=== PATIENT | female | born 1955 | race Caucasian/White ===

== ENCOUNTER → 2016-06-19 | Outpatient (CLI) | payer OTHER ==
[~2016-06-19] MED LIST: IOHEXOL 300 MG/ML 75 ML VIAL IV ONE
--- NOTE | 2016-06-19 14:32 | RAD ---
CT of the chest with contrast, 06/19/2016: History: Dyspnea, weight loss Multidetector CT imaging was performed following an IV bolus injection of iodinated contrast material. There is calcific plaquing of the thoracic aorta and its branches without evidence of aneurysm. No mediastinal or hilar adenopathy is seen. There is no evidence of pleural fluid. There are several mild linear parenchymal opacities in both lungs compatible with scarring and/or atelectasis. No pulmonary mass or dense consolidation is seen. The gallbladder is surgically absent. There is a 3.2 cm cyst present anteriorly in the liver. Two other smaller subcentimeter low-density hepatic lesions are also probably cysts, although they are too small to definitively characterize. There also appears to be a tiny left renal cyst. IMPRESSION: 1. Mild linear scarring and/or atelectasis in both lungs. 2. Aortic atherosclerosis. 3. Hepatic and left renal cysts. PQRS Compliance Statement: One or more of the following individualized dose reduction techniques were utilized for this examination: 1. Automated exposure control 2. Adjustment of the mA and/or kV according to patient size 3. Use of iterative reconstruction technique
== END | disposition home or self-care (01) ==
LOC: CT 09:46
PROVIDERS: ATTEND Family Medicine
DX: R06.00 Dyspnea, unspecified (principal); R63.4 Abnormal weight loss; J98.4 Other disorders of lung; J98.11 Atelectasis; I70.0 Atherosclerosis of aorta; N28.1 Cyst of kidney, acquired
CPT/HCPCS: 71260; Q9967

== ENCOUNTER → 2016-06-29 | Outpatient (CLI) | payer OTHER ==
--- NOTE | 2016-06-29 12:13 | RAD ---
EXAM: Dual modality PET/CT. HISTORY: Pulmonary nodule. TECHNIQUE: PET images of the entire body were obtained approximately 60 minutes following the intravenous administration of 16.6 mCi F-18 fluorodeoxyglucose (FDG). CT images of the body were obtained for attenuation correction purposes. The blood glucose level prior to tracer administration was 109 mg/dL. One or more of the following individualized dose reduction techniques were utilized for this examination: 1. Automated exposure control. 2. Adjustment of the mA and/or kV according to patient size. 3. Use of iterative reconstruction technique. Chest CT dated 06/19/2016 COMPARISON: Chest CT dated 06/19/2016. FINDINGS: There is increased radiotracer activity involving the right intercostal musculature, likely physiologic. There is also physiologic activity involving the vocal cords. There is suspected degenerative tracer activity involving the right sternoclavicular joint. There is expected tracer activity involving the bowel and renal collecting system. The CT portion of the exam demonstrates suspected scarring within the anterior right upper and middle lobes and lingula and bilateral infrahilar regions. No abnormal tracer activity is seen associated with these regions. The heart is normal in size. There is coronary artery atherosclerosis. The brain is unremarkable. There is calcified plaque within the carotid bifurcations. There are several hypodense lesions within the liver, the largest of which measures 3.0 cm and is likely a cyst. The smaller lesions are too small to characterize. The gallbladder is surgically absent. The pancreas, spleen, adrenal glands and right kidney are unremarkable. There is a tiny left renal cortical cyst. There is distal colonic diverticulosis. There is aortic and aortic branch vessel atherosclerosis. The uterus and adnexal regions are unremarkable. There is no suspicious osseous lesion. There are degenerative changes predominantly at the lumbosacral junction. IMPRESSION: 1. No abnormal radiotracer activity suggest malignancy. 2. Multiple areas of suspected pleural parenchymal scarring within both lungs, also characterized on the recent chest CT dated 06/19/2016. 3. 3.0 cm hepatic cyst. There are smaller hypodense lesions within the liver which are too small to characterize. In the absence of known malignancy, these are also likely cysts.
== END | disposition home or self-care (01) ==
LOC: PETSC 08:53
PROVIDERS: ATTEND Family Medicine
DX: R91.1 Solitary pulmonary nodule (principal); K76.89 Other specified diseases of liver
CPT/HCPCS: 78816; A9552

== ENCOUNTER 2018-04-14 14:56 | Inpatient (IN) | payer OTHER ==
[~2018-04-14] VITALS: Ht 154.9 cm; Wt 45.4 kg
[2018-04-14] MEDS ORDERED: ASPI-424 PO (18:46)
[2018-04-14] MEDS ORDERED: PANT20TA2 PO (18:46)
[2018-04-14] MEDS ORDERED: METH-37 PO (18:46)
[2018-04-14] MEDS ORDERED: ALPR2TAB5 PO (18:46)
[2018-04-14] MEDS ORDERED: ACYC5CRE3 TP (18:46)
[2018-04-14] MEDS ORDERED: NAPR-514 PO (18:46)
[2018-04-14] MEDS ORDERED: QUET200T4 PO (18:46)
[2018-04-14] MEDS ORDERED: LISI1TAB5 PO (18:46)
[2018-04-14 19:00] VITALS: BP 138/60
[2018-04-14] MEDS ORDERED: MORPHINE SULFATE 2 MG/ML VIAL. IV PRN (20:00)
[2018-04-14] MEDS ORDERED: HYDROcodone/APAP 5/325MG 1 TAB TABLET PO PRN (20:00)
[2018-04-14] MEDS ORDERED: traMADol 50 MG TABLET PO PRN (20:30)
[2018-04-14] MEDS ORDERED: ACETAMINOPHEN 325 MG TABLET. PO PRN (20:30)
[2018-04-14] MEDS: IV RINGERS,LACTATED 1000ML 1,000 ML IV SCH (20:30)
[2018-04-14] MEDS ORDERED: ACYCLOVIR TP PRN (20:45)
[2018-04-14] MEDS ORDERED: NAPROXEN 500 MG TABLET PO PRN (20:45)
[2018-04-14] MEDS ORDERED: ALPRAZolam 1 MG TABLET PO PRN (20:45)
[2018-04-14] MEDS ORDERED: HYDROCORTISONE TP PRN (20:45)
[2018-04-14] MEDS ORDERED: METHOCARBAMOL 500 MG TABLET PO PRN (20:45)
--- NOTE | 2018-04-14 20:49 | NUR ---
1800 patient placed in room 404 with no c/o pain at that time. Patient was instructed in use of call light and doctor was called for orders. Preston yin ordered. Dr Bauer to put in admission orders, but did give me changed to make on her home medications.
[2018-04-14] MEDS ORDERED: ZOLPIDEM 5 MG TABLET. PO PRN (21:30)
[2018-04-14] MEDS ORDERED: BISACODYL 10 MG SUPP.RECT. PR PRN (21:30)
[2018-04-14] MEDS ORDERED: ONDANSETRON PF 4 MG/2 ML VIAL. IV PRN (21:30)
[2018-04-14] MEDS ORDERED: MAGNESIUM HYDROXIDE 2,400 MG/30 ML ORAL.SUSP. PO PRN (21:30)
[2018-04-14] MEDS ORDERED: HEPARIN for SUB-Q USE 5,000 UNIT/ML VIAL. SQ ONE (21:30)
[2018-04-14 21:31] LABS: BILIRUBIN,URINE NEGATIVE (NEG); CLARITY,URINE CLEAR; COLOR,URINE YELLOW; NITRITE,URINE POSITIVE (NEG); PROTEIN,URINE NEGATIVE (NEG-TRACE)
[2018-04-14 21:43] LABS: BACTERIA,URINE MANY /HPF (0-FEW); RBC,URINE 20-40 /HPF (0-2); SQUAMOUS EPITHELIAL CELL,UR FEW /LPF; WBC,URINE 20-40 /HPF (0-4)
[2018-04-14] MEDS: fentaNYL PF VIAL 100 MCG/2 ML VIAL IV PRN (22:08)
[2018-04-14] MEDS: QUEtiapine 100 MG TABLET. PO PRN (22:08)
[2018-04-14 23:00] VITALS: BP 138/60
[2018-04-15] MEDS: fentaNYL PF VIAL 100 MCG/2 ML VIAL IV PRN (01:13)
[2018-04-15 03:00] VITALS: BP 153/65
[2018-04-15 04:29] LABS: BASO % 0 % (0-3); EOS % 0 % (0-3); HEMATOCRIT 36.5 % (36.0-47.0); HEMOGLOBIN 12.2 g/dL (12.0-15.5); LYMPH # 1.1 x10^3/uL (1.0-4.8); LYMPH % 13 % (24-48); MEAN CORPUSCULAR HEMOGLOBIN 29 pg (25-35); MEAN CORPUSCULAR HGB CONC 33 g/dL (31-37); MEAN CORPUSCULAR VOLUME 87 fL (79-100); MONO # 0.5 x10^3/uL (0.0-1.1); MONO % 5 % (0-9); NEUT # 7.4 x10^3uL (1.8-7.7); NEUT % 81 % (31-73); PLATELET COUNT 179 x10^3/uL (140-400); RED BLOOD COUNT 4.22 x10^6/uL (3.50-5.40)
[2018-04-15 04:37] LABS: PROTHROMBIN TIME PATIENT 13.8 SEC (11.7-14.0)
[2018-04-15 04:45] LABS: CALCIUM 8.9 mg/dL (8.5-10.1); CREATININE 0.8 mg/dL (0.6-1.0); GFR 72.4; POTASSIUM 3.1 mmol/L (3.5-5.1)
[2018-04-15 07:00] VITALS: BP 143/62
[2018-04-15] MEDS ORDERED: ASPIRIN ENTERIC COATED 81 MG TABLET.DR. PO SCH (08:00)
[2018-04-15] MEDS: hydroCHLOROthiazide 12.5 MG CAPSULE PO SCH (08:05)
[2018-04-15] MEDS: LISINOPRIL 20 MG TABLET PO SCH (08:06)
[2018-04-15] MEDS: PANTOPRAZOLE 40 MG TABLET.DR. PO SCH (08:07)
[2018-04-15] MEDS: ALPRAZolam 1 MG TABLET PO SCH ×5 (08:11→20:27)
[2018-04-15] MEDS ORDERED: POTASSIUM CHLORIDE 20 MEQ TABLET.ER. PO ONE (08:15)
[2018-04-15] MEDS: SENNOSIDES/DOCUSATE 8.6/50MG TABLET. PO SCH ×2 (08:17→20:31)
[2018-04-15] MEDS ORDERED: ALBUTEROL SULFATE 2.5 MG/3 ML NEBU. NEB PRN (08:30)
--- NOTE | 2018-04-15 08:46 | PDOC ---
Provider Note Provider Note Consult received, [facility] x-rays reviewed. Report reviewed. There is suspicion of intertrochanteric fracture but the fracture line is not well seen. I will order a CT scan to confirm. Left hip without contrast ERICA DAVE MD Apr 15, 2018 08:46
[2018-04-15] MEDS ORDERED: METHOCARBAMOL 500 MG TABLET PO PRN (09:00)
[2018-04-15] MEDS ORDERED: NON FORMULARY ITEM (Lisinopril/Hydrochlorothiazide (Lisinopril-Hctz 20-12.5 Mg Tab) 1 TAB) PO SCH (09:00)
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
[2018-04-15] MEDS: cefTRIAXone IV Push 1 GM VIAL. IVP SCH (09:23)
--- NOTE | 2018-04-15 09:49 | RAD ---
EXAM: CT left hip without contrast DATE: 04/15/2018 9:01 AM COMPARISON: Radiographs 04/14/2018 INDICATION: FELL AT HOME, LEFT HIP PAIN - EVAL LEFT HIP FRACTURE TECHNIQUE: CT of the left hip was performed without IV contrast. Axial coronal and sagittal reformatted images were generated. FINDINGS: There is a comminuted fracture of the left greater trochanter without significant displacement. This is not appear to extend into the intertrochanteric region or femoral neck. Grossly normal muscle bulk within the left gluteus medius, minimus and tomy. Left trochanteric bursal distention is seen. Decreased bone mineral density. Lower lumbar spine degenerative changes are seen. Mild symphysis pubis degenerative changes are seen with small associated osteophytes. Atherosclerotic vascular calcifications are seen. On this marginal evaluation of the pelvis, the Esquivel catheter is seen within the decompressed bladder. IMPRESSION: 1. Essentially nondisplaced, comminuted left intertrochanteric fracture is seen with trochanteric bursal distention. Electronically signed by: Mateo Smart MD (04/15/2018 9:45 AM) [id number]
[2018-04-15 11:00] VITALS: BP 130/57
[2018-04-15] MEDS: IPRATRPIUM/ALBUTEROL 0.5/2.5MG 3 ML NEBU. NEB SCH ×2 (11:13→19:16)
--- NOTE | 2018-04-15 11:19 | NUR ---
SW following for discharge planning. Chart reviewed, discussed with RN. RN advised we are awaiting CT results to determine if pt will need surgery or not. Pt will likely need rehab if having surgery, and possibly will need rehab regardless. SW will continue to follow.
--- NOTE | 2018-04-15 11:36 | NUR ---
Pt reported she wore a heart monitor for 24 hours, sent it in to cardiology center, and pt awaiting results. Dr. Hill's office was called in regard to this, to see if they could discuss results with pt during her hospitalization. Addendum: 04/15/18 at 1140 by ROGERIO CHAN RN Kianna from cardiology responded to Dr. Sergio ball out for the day. She will follow up with results
[2018-04-15] MEDS: oxyCODONE IR 5 MG TABLET PO PRN ×2 (13:31→20:27)
[2018-04-15] MEDS ORDERED: diphenhydrAMINE HCL 25 MG CAPSULE PO PRN ×2 (14:30→15:00)
[2018-04-15 15:00] VITALS: BP 121/38
--- NOTE | 2018-04-15 15:51 | NUR ---
SW following. Pt asked her RN if her insurance was accepted at [facility], SW phoned and faxed pt's facesheet to [facility] to determine coverage. LIAM will continue to follow.
[2018-04-15] MEDS: IV RINGERS,LACTATED 1000ML 1,000 ML IV SCH (16:30)
[2018-04-15 19:00] VITALS: BP 122/46
--- NOTE | 2018-04-15 19:14 | PDOC2 ---
CONSULT Date of Consult Date of Consult DATE: 04/15/18 TIME: 19:12 Reason for Consult Reason for Consult: Left hip fracture Identification/Chief Complaint Chief Complaint Left hip pain after a fall Source Source: Chart review, Patient History of Present Illness Reason for Visit: Patient is a 62 year old female who presents with left hip pain after a fall on 04/13/18. She said her shoes were wet, and she was on the linoleum kitchen floor when she slipped. The patient states that she was bending down to say goodbye to her niece and her niece knocked her over and the patient landed on her left hip. She states that the pain is nonradiating, sharp, and can be as bad as a 10 out of 10 for the left hip. She has tried to use Tylenol to manage the pain, which has been inadequate. She states that it was very difficult to sleep because the pain is increased by lying on her side. Denies headache or neck pain. Denies other injury or complaint. Denies use of blood thinners. Past Medical History Past Medical History Past Medical History: Anxiety, Arrhythmia, Hypertension, Other Cardiovascular: HTN Pulmonary: No pertinent hx CENTRAL NERVOUS SYSTEM: Carpal Tunnel Syndrome GI: No pertinent hx Heme/Onc: No pertinent hx Psych: Anxiety, Addictions, Depression, Other Musculoskeletal: low back pain Rheumatologic: No pertinent hx ENT: No pertinent hx Past Surgical History Past Surgical History: Cholecystectomy Social History Social History trying to quit smoking. 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 She lives with her . 1 pack per day ALCOHOL: none Drugs: None Current Medications Current Medications Current Medications Morphine Sulfate (Morphine Sulfate) 2 mg PRN Q4HRS PRN IV PAIN; Start 04/14/18 at 20:00; Stop 04/14/18 at 20:24; Status DC Acetaminophen/ Hydrocodone Bitart (Lortab 5/325) 1 tab PRN Q6HRS PRN PO PAIN; Start 04/14/18 at 20:00; Stop 04/14/18 at 20:13; Status DC Acetaminophen (Tylenol) 650 mg PRN Q6HRS PRN PO pain; Start 04/14/18 at 20:30 Tramadol HCl (Ultram) 50 mg PRN Q6HRS PRN PO PAIN; Start 04/14/18 at 20:30 Fentanyl Citrate (Fentanyl 2ml Vial) 25 mcg PRN Q4HRS PRN IV PAIN Last administered on 04/15/18at 01:13; Start 04/14/18 at 20:30 Ringer's Solution 1,000 ml @ 50 mls/hr Q20H IV Last administered on 04/15/18at 16:30; Start 04/14/18 at 20:30 Heparin Sodium (Porcine) (Heparin Sodium) 5,000 unit 1X ONCE SQ Last administered on 04/14/18at 22:13; Start 04/14/18 at 21:30; Stop 04/14/18 at 21:31 ; Status DC Alprazolam (Xanax) 1 mg PRN QID PRN PO ANXIETY / AGITATION; Start 04/14/18 at 20:45; Stop 04/15/18 at 08:09; Status DC Methocarbamol (Robaxin) 500 mg PRN TID PRN PO MUSCLE SPASMS; Start 04/14/18 at 20:45; Stop 04/15/18 at 08:08; Status DC Naproxen (Naprosyn) 500 mg PRN BID PRN PO PAIN Last administered on 04/15/18at 08:07; Start 04/14/18 at 20:45 Aspirin (Ecotrin) 81 mg DAILYWBKFT PO Last administered on 04/15/18at 08:06; Start 04/15/18 at 08:00 Non-Formulary Medication (Acyclovir/ Hydrocortisone (Xerese 5%-1% Cream)) 5 gm PRN 3-4XDAILY PRN TP RASH; Start 04/14/18 at 20:45; Status UNV Non-Formulary Medication (Lisinopril/ Hydrochlorothiazide (Lisinopril-Hctz 20- 12.5 Mg Tab)) 1 tab DAILY PO ; Start 04/15/18 at 09:00; Status UNV Pantoprazole Sodium (Protonix) 40 mg DAILYAC PO Last administered on 04/15/18at 08:07; Start 04/15/18 at 07:30 Quetiapine Fumarate (SEROquel) 200 mg PRN QHS PRN PO INSOMNIA Last administered on 04/14/18at 22:08; Start 04/14/18 at 20:45 Lisinopril (Prinivil) 20 mg DAILY PO Last administered on 04/15/18at 08:06; Start 04/15/18 at 09:00 Hydrochlorothiazide (Microzide) 12.5 mg DAILY PO Last administered on at 08:05; Start 04/15/18 at 09:00 Ondansetron HCl (Zofran) 4 mg PRN Q6HRS PRN IV NAUSEA/VOMITING; Start 04/14/18 at 21:30 Zolpidem Tartrate (Ambien) 5 mg PRN QHS PRN PO INSOMNIA, MAY REPEAT IN 1HR; Start 04/14/18 at 21:30 Oxycodone HCl (Roxicodone) 5 mg PRN Q3HRS PRN PO BREAKTHROUGH PAIN Last administered on 04/15/18at 13:31; Start 04/14/18 at 21:30 Senna/Docusate Sodium (Senna Plus) 1 tab BID PO Last administered on 04/15/18at 08:17; Start 04/15/18 at 09:00 Magnesium Hydroxide (Milk Of Magnesia) 2,400 mg PRN Q12HR PRN PO CONSTIPATION; Start 04/14/18 at 21:30 Bisacodyl (Dulcolax Supp) 10 mg PRN DAILY PRN [place] CONSTIPATION; Start 04/14/18 at 21:30 Methocarbamol (Robaxin) 500 mg PRN Q6HRS PRN PO MUSCLE PAIN; Start 04/15/18 at 09:00 Alprazolam (Xanax) 2 mg QID PO Last administered on 04/15/18at 13:31; Start at 09:00 Ceftriaxone Sodium (Rocephin) 1 gm Q24H IVP Last administered on 04/15/18at 09: 23; Start 04/15/18 at 09:00 Albuterol/ Ipratropium (Duoneb) 3 ml BID NEB Last administered on 04/15/18at 11: 13; Start 04/15/18 at 09:00 Albuterol Sulfate (Ventolin Neb Soln) 2.5 mg PRN QID PRN NEB DYSPNEA; Start at 08:30 Potassium Chloride (Klor-Con) 40 meq 1X ONCE PO Last administered on at 08:19; Start 04/15/18 at 08:15; Stop 04/15/18 at 08:18; Status DC Diphenhydramine HCl (Benadryl) 25 mg PRN Q6HRS PRN PO ITCHING; Start 04/15/18 at 14:30 Diphenhydramine HCl (Benadryl) 25 mg PRN Q6HRS PRN PO ITCHING; Start 04/15/18 at 15:00 Active Scripts Active Reported Seroquel (Quetiapine Fumarate) 200 Mg Tablet 1 Tab PO QHS PRN Adult Low Dose Aspirin Ec (Aspirin) 81 Mg Tablet. 81 Mg PO DAILY Xerese 5%-1% Cream (Acyclovir/Hydrocortisone) 5 Gm Cream..g. 5 Gm TP PRN 3- 4XDAILY PRN Naproxen 500 Mg Tablet 1 Tab PO BID Robaxin (Methocarbamol) 500 Mg Tablet 1 Tab PO PRN Q6HRS PRN Protonix (Pantoprazole Sodium) 20 Mg Tablet.dr 2 Tab PO DAILY Lisinopril-Hctz 20-12.5 Mg Tab (Lisinopril/Hydrochlorothiazide) 1 Each Tablet 1 Tab PO DAILY Alprazolam 2 Mg Tablet 1 Tab PO QID Allergies Allergies: Coded Allergies: codeine (Verified Allergy, Mild, Itching, 06/19/16) hydrocodone (Verified Allergy, Mild, Itching, 04/14/18) ROS Review of System She has been losing weight that she can't explain. She said Dr. Monge her PCP did an extensive workup of this in 2017 and they were unable to find a reason for her weight loss. She is down to 100 pounds. She denied chest pain, cough, masses, or other systemic symptoms. Respiratory: No: Cough, Pleuritic Pain, Shortness of breath, SOB with excertion Cardiovascular: No Chest Pain Gastrointestinal: No Nausea, No Vomiting Musculoskeletal: Yes Gait Disturbance, Yes Joint Pain Physical Exam General: Alert, Cooperative HEENT: Atraumatic Lungs: Normal air movement Heart: Regular rate Abdomen: Soft Extremities: Other (the left hip is tender to palpation laterally. There is no ecchymosis. Gentle range of motion of the hip caused slight pain laterally. There is no groin pain. The limb lengths are equal, and there is no shortening or rotation. There is no gross deformity. Skin intact over the fracture.) Skin: No breakdown, No significant lesion, Other (there is some purple discoloration of the left hand consistent with blood thinners or fragile skin) Neuro: Normal speech, Sensation intact MUSCULOSKELETAL: Abnormal exam of left (hip with tenderness over the greater trochanter.) Vitals VITALS Vital Signs Date Time Temp Pulse Resp B/P (MAP) Pulse Ox O2 Delivery O2 Flow Rate FiO2 04/15/18 15:00 98.5 51 18 121/38 (65) 96 Nasal Cannula 2.0 98.5 Labs Labs Laboratory Tests Test 04/14/18 21:05 04/14/18 21:15 04/15/18 03:35 Urine Collection Type U cath Urine Color Yellow Urine Clarity Clear Urine pH 7.0 Urine Specific [place] 1.010 Urine Protein Negative mg/dL (NEG-TRACE) Urine Glucose (UA) Negative mg/dL (NEG) Urine Ketones (Stick) Negative mg/dL (NEG) Urine Blood Large (NEG) Urine Nitrite Positive (NEG) Urine Bilirubin Negative (NEG) Urine Urobilinogen Dipstick 1.0 mg/dL (0.2 mg/dL) Urine Leukocyte Esterase Large (NEG) Urine RBC 20-40 /HPF (0-2) Urine WBC 20-40 /HPF (0-4) Urine Squamous Epithelial Cells Few /LPF Urine Bacteria Many /HPF (0-FEW) Nasal Screen MRSA (PCR) Negative (Negative) White Blood Count 9.0 x10^3/uL (4.0-11.0) Red Blood Count 4.22 x10^6/uL (3.50-5.40) Hemoglobin 12.2 g/dL (12.0-15.5) Hematocrit 36.5 % (36.0-47.0) Mean Corpuscular Volume 87 fL (79-100) Mean Corpuscular Hemoglobin 29 pg (25-35) Mean Corpuscular Hemoglobin Concent 33 g/dL (31-37) Red Cell Distribution Width 14.0 % (11.5-14.5) Platelet Count 179 x10^3/uL (140-400) Neutrophils (%) (Auto) 81 % (31-73) Lymphocytes (%) (Auto) 13 % (24-48) Monocytes (%) (Auto) 5 % (0-9) Eosinophils (%) (Auto) 0 % (0-3) Basophils (%) (Auto) 0 % (0-3) Neutrophils # (Auto) 7.4 x10^3uL (1.8-7.7) Lymphocytes # (Auto) 1.1 x10^3/uL (1.0-4.8) Monocytes # (Auto) 0.5 x10^3/uL (0.0-1.1) Eosinophils # (Auto) 0.0 x10^3/uL (0.0-0.7) Basophils # (Auto) 0.0 x10^3/uL (0.0-0.2) Prothrombin Time 13.8 SEC (11.7-14.0) Prothromb Time International Ratio 1.1 (0.8-1.1) Sodium Level 142 mmol/L (136-145) Potassium Level 3.1 mmol/L (3.5-5.1) Chloride Level 105 mmol/L (98-107) Carbon Dioxide Level 27 mmol/L (21-32) Anion Gap 10 (6-14) Blood Urea Nitrogen 7 mg/dL (7-20) Creatinine 0.8 mg/dL (0.6-1.0) Estimated GFR (Cockcroft-Gault) 72.4 Glucose Level 96 mg/dL (70-99) Calcium Level 8.9 mg/dL (8.5-10.1) 25-Hydroxy Vitamin D Total 18.2 ng/mL (30-100) Laboratory Tests Test 04/14/18 21:05 04/14/18 21:15 04/15/18 03:35 Urine Collection Type U cath Urine Color Yellow Urine Clarity Clear Urine pH 7.0 Urine Specific [place] 1.010 Urine Protein Negative mg/dL (NEG-TRACE) Urine Glucose (UA) Negative mg/dL (NEG) Urine Ketones (Stick) Negative mg/dL (NEG) Urine Blood Large (NEG) Urine Nitrite Positive (NEG) Urine Bilirubin Negative (NEG) Urine Urobilinogen Dipstick 1.0 mg/dL (0.2 mg/dL) Urine Leukocyte Esterase Large (NEG) Urine RBC 20-40 /HPF (0-2) Urine WBC 20-40 /HPF (0-4) Urine Squamous Epithelial Cells Few /LPF Urine Bacteria Many /HPF (0-FEW) Nasal Screen MRSA (PCR) Negative (Negative) White Blood Count 9.0 x10^3/uL (4.0-11.0) Red Blood Count 4.22 x10^6/uL (3.50-5.40) Hemoglobin 12.2 g/dL (12.0-15.5) Hematocrit 36.5 % (36.0-47.0) Mean Corpuscular Volume 87 fL (79-100) Mean Corpuscular Hemoglobin 29 pg (25-35) Mean Corpuscular Hemoglobin Concent 33 g/dL (31-37) Red Cell Distribution Width 14.0 % (11.5-14.5) Platelet Count 179 x10^3/uL (140-400) Neutrophils (%) (Auto) 81 % (31-73) Lymphocytes (%) (Auto) 13 % (24-48) Monocytes (%) (Auto) 5 % (0-9) Eosinophils (%) (Auto) 0 % (0-3) Basophils (%) (Auto) 0 % (0-3) Neutrophils # (Auto) 7.4 x10^3uL (1.8-7.7) Lymphocytes # (Auto) 1.1 x10^3/uL (1.0-4.8) Monocytes # (Auto) 0.5 x10^3/uL (0.0-1.1) Eosinophils # (Auto) 0.0 x10^3/uL (0.0-0.7) Basophils # (Auto) 0.0 x10^3/uL (0.0-0.2) Prothrombin Time 13.8 SEC (11.7-14.0) Prothromb Time International Ratio 1.1 (0.8-1.1) Sodium Level 142 mmol/L (136-145) Potassium Level 3.1 mmol/L (3.5-5.1) Chloride Level 105 mmol/L (98-107) Carbon Dioxide Level 27 mmol/L (21-32) Anion Gap 10 (6-14) Blood Urea Nitrogen 7 mg/dL (7-20) Creatinine 0.8 mg/dL (0.6-1.0) Estimated GFR (Cockcroft-Gault) 72.4 Glucose Level 96 mg/dL (70-99) Calcium Level 8.9 mg/dL (8.5-10.1) 25-Hydroxy Vitamin D Total 18.2 ng/mL (30-100) Images Images Her x-rays from [place] seem to show an intertrochanteric fracture. This is probably a soft tissue shadow causing that appearance. The CT scan shows no intertrochanteric fracture, but does show a tip of the greater trochanter fracture, minimally displaced. The fracture that I see on CT scan is nonsurgical. Assessment/Plan Assessment/Plan Left hip greater trochanter fracture, minimal displacement. No CT evidence of intertrochanteric fracture. I recommended a walker, weightbearing as tolerated, and aspirin for DVT prophylaxis. She needs a follow-up x-ray in 2-3 weeks, as there can be an occult intertrochanteric component even when CT is negative. Her vitamin D is low, and we should begin supplementation. She agrees with this plan. She may start physical therapy with a walker. Discharge planning likely for 04/16/18. ERICA DAVE MD Apr 15, 2018 19:14
[2018-04-16 03:00] VITALS: BP 115/67
[2018-04-16] MEDS: PANTOPRAZOLE 40 MG TABLET.DR. PO SCH (06:13)
[2018-04-16 07:00] VITALS: BP 132/67
[2018-04-16] MEDS: IPRATRPIUM/ALBUTEROL 0.5/2.5MG 3 ML NEBU. NEB SCH ×2 (07:20→19:51)
--- NOTE | 2018-04-16 08:12 | EKG ---
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
[2018-04-16] MEDS: SENNOSIDES/DOCUSATE 8.6/50MG TABLET. PO SCH ×2 (09:00→20:36)
[2018-04-16] MEDS: ALPRAZolam 1 MG TABLET PO SCH ×3 (09:00→16:27)
[2018-04-16] MEDS: hydroCHLOROthiazide 12.5 MG CAPSULE PO SCH (09:00)
[2018-04-16] MEDS: CHOLECALCIFEROL (VITAMIN D3) 1,000 UNIT TABLET PO SCH (09:15)
[2018-04-16] MEDS: LISINOPRIL 20 MG TABLET PO SCH (09:18)
[2018-04-16] MEDS: cefTRIAXone IV Push 1 GM VIAL. IVP SCH (09:19)
[2018-04-16] MEDS: ASPIRIN ENTERIC COATED 325 MG TABLET.DR. PO SCH (09:19)
--- NOTE | 2018-04-16 10:50 | PDOC ---
PROGRESS NOTES History of Present Illness History of Present Illness Assessment/Plan Assessment/Plan fall at home acute left hip pain, concern for femur fracture from prior imaging, Ortho consult, comminuted left intertrochanteric fracture is seen with trochanteric bursal distention. weakness and debility, has been using a walker at home, has not informed Dr. Humphrey of this. prior weight loss, her primary care has worked up last year, no source found hypoxia, NC 02 and nebs, chronic tobacco use disorder, poss atelectasis, some confusion due to expected medicine side effect Vitals Vitals Vital Signs Date Time Temp Pulse Resp B/P (MAP) Pulse Ox O2 Delivery O2 Flow Rate FiO2 04/16/18 09:18 50 132/67 04/16/18 07:50 Room Air 04/16/18 07:21 90 04/16/18 07:00 97.8 18 97.8 04/16/18 03:00 2.0 Physical Exam Physical Exam HEENT: EOMI, Mucous membr. moist/pink Lungs: Clear to auscultation Heart: no murmurs Abdomen: Normal bowel sounds, Soft Rectal Exam: not examined Extremities: No cyanosis, No edema, Normal pulses Skin: No rashes, No significant lesion Neuro: Normal tone, Sensation intact, Cranial nerves 3-12 NL Psych/Mental Status: Mood NL General: Alert, Oriented X3, Cooperative, mild distress Heart: Regular rate Lungs: Clear Abdomen: Normal bowel sounds, Soft Extremities: No cyanosis, Other (the left hip is tender to palpation laterally. There is no ecchymosis. Gentle range of motion of the hip caused slight pain laterally. There is no groin pain. The limb lengths are equal, and there is no shortening or rotation. There is no gross deformity. Skin intact over the fracture.) Skin: No breakdown, No significant lesion, Other (there is some purple discoloration of the left hand consistent with blood thinners or fragile skin) Labs LABS EXAM: CT left hip without contrast DATE: 04/15/2018 9:01 AM COMPARISON: Radiographs 04/14/2018 INDICATION: FELL AT HOME, LEFT HIP PAIN - EVAL LEFT HIP FRACTURE TECHNIQUE: CT of the left hip was performed without IV contrast. Axial coronal and sagittal reformatted images were generated. FINDINGS: There is a comminuted fracture of the left greater trochanter without significant displacement. This is not appear to extend into the intertrochanteric region or femoral neck. Grossly normal muscle bulk within the left gluteus medius, minimus and tomy. Left trochanteric bursal distention is seen. Decreased bone mineral density. Lower lumbar spine degenerative changes are seen. Mild symphysis pubis degenerative changes are seen with small associated osteophytes. Atherosclerotic vascular calcifications are seen. On this marginal evaluation of the pelvis, the Esquivel catheter is seen within the decompressed bladder. IMPRESSION: 1. Essentially nondisplaced, comminuted left intertrochanteric fracture is seen with trochanteric bursal distention. Electronically signed by: Mateo Smart MD (04/15/2018 9:45 AM) [facility] Comment Review of Relevant I have reviewed the following items apoorva (where applicable) has been applied. Labs Laboratory Tests Test 04/14/18 21:05 04/14/18 21:15 04/15/18 03:35 Urine Collection Type U cath Urine Color Yellow Urine Clarity Clear Urine pH 7.0 Urine Specific [place] 1.010 Urine Protein Negative mg/dL (NEG-TRACE) Urine Glucose (UA) Negative mg/dL (NEG) Urine Ketones (Stick) Negative mg/dL (NEG) Urine Blood Large (NEG) Urine Nitrite Positive (NEG) Urine Bilirubin Negative (NEG) Urine Urobilinogen Dipstick 1.0 mg/dL (0.2 mg/dL) Urine Leukocyte Esterase Large (NEG) Urine RBC 20-40 /HPF (0-2) Urine WBC 20-40 /HPF (0-4) Urine Squamous Epithelial Cells Few /LPF Urine Bacteria Many /HPF (0-FEW) Nasal Screen MRSA (PCR) Negative (Negative) White Blood Count 9.0 x10^3/uL (4.0-11.0) Red Blood Count 4.22 x10^6/uL (3.50-5.40) Hemoglobin 12.2 g/dL (12.0-15.5) Hematocrit 36.5 % (36.0-47.0) Mean Corpuscular Volume 87 fL (79-100) Mean Corpuscular Hemoglobin 29 pg (25-35) Mean Corpuscular Hemoglobin Concent 33 g/dL (31-37) Red Cell Distribution Width 14.0 % (11.5-14.5) Platelet Count 179 x10^3/uL (140-400) Neutrophils (%) (Auto) 81 % (31-73) Lymphocytes (%) (Auto) 13 % (24-48) Monocytes (%) (Auto) 5 % (0-9) Eosinophils (%) (Auto) 0 % (0-3) Basophils (%) (Auto) 0 % (0-3) Neutrophils # (Auto) 7.4 x10^3uL (1.8-7.7) Lymphocytes # (Auto) 1.1 x10^3/uL (1.0-4.8) Monocytes # (Auto) 0.5 x10^3/uL (0.0-1.1) Eosinophils # (Auto) 0.0 x10^3/uL (0.0-0.7) Basophils # (Auto) 0.0 x10^3/uL (0.0-0.2) Prothrombin Time 13.8 SEC (11.7-14.0) Prothromb Time International Ratio 1.1 (0.8-1.1) Sodium Level 142 mmol/L (136-145) Potassium Level 3.1 mmol/L (3.5-5.1) Chloride Level 105 mmol/L (98-107) Carbon Dioxide Level 27 mmol/L (21-32) Anion Gap 10 (6-14) Blood Urea Nitrogen 7 mg/dL (7-20) Creatinine 0.8 mg/dL (0.6-1.0) Estimated GFR (Cockcroft-Gault) 72.4 Glucose Level 96 mg/dL (70-99) Calcium Level 8.9 mg/dL (8.5-10.1) 25-Hydroxy Vitamin D Total 18.2 ng/mL (30-100) Medications Current Medications Morphine Sulfate (Morphine Sulfate) 2 mg PRN Q4HRS PRN IV PAIN; Start 04/14/18 at 20:00; Stop 04/14/18 at 20:24; Status DC Acetaminophen/ Hydrocodone Bitart (Lortab 5/325) 1 tab PRN Q6HRS PRN PO PAIN; Start 04/14/18 at 20:00; Stop 04/14/18 at 20:13; Status DC Acetaminophen (Tylenol) 650 mg PRN Q6HRS PRN PO pain; Start 04/14/18 at 20:30 Tramadol HCl (Ultram) 50 mg PRN Q6HRS PRN PO PAIN; Start 04/14/18 at 20:30 Fentanyl Citrate (Fentanyl 2ml Vial) 25 mcg PRN Q4HRS PRN IV PAIN Last administered on 04/15/18at 01:13; Start 04/14/18 at 20:30 Ringer's Solution 1,000 ml @ 50 mls/hr Q20H IV Last administered on 04/15/18at 16:30; Start 04/14/18 at 20:30 Heparin Sodium (Porcine) (Heparin Sodium) 5,000 unit 1X ONCE SQ Last administered on 04/14/18at 22:13; Start 04/14/18 at 21:30; Stop 04/14/18 at 21:31 ; Status DC Alprazolam (Xanax) 1 mg PRN QID PRN PO ANXIETY / AGITATION; Start 04/14/18 at 20:45; Stop 04/15/18 at 08:09; Status DC Methocarbamol (Robaxin) 500 mg PRN TID PRN PO MUSCLE SPASMS; Start 04/14/18 at 20:45; Stop 04/15/18 at 08:08; Status DC Naproxen (Naprosyn) 500 mg PRN BID PRN PO PAIN Last administered on 04/15/18at 08:07; Start 04/14/18 at 20:45 Aspirin (Ecotrin) 81 mg DAILYWBKFT PO Last administered on 04/15/18at 08:06; Start 04/15/18 at 08:00; Stop 04/15/18 at 19:26; Status DC Non-Formulary Medication (Acyclovir/ Hydrocortisone (Xerese 5%-1% Cream)) 5 gm PRN 3-4XDAILY PRN TP RASH; Start 04/14/18 at 20:45; Status UNV Non-Formulary Medication (Lisinopril/ Hydrochlorothiazide (Lisinopril-Hctz 20- 12.5 Mg Tab)) 1 tab DAILY PO ; Start 04/15/18 at 09:00; Status UNV Pantoprazole Sodium (Protonix) 40 mg DAILYAC PO Last administered on 04/16/18at 06:13; Start 04/15/18 at 07:30 Quetiapine Fumarate (SEROquel) 200 mg PRN QHS PRN PO INSOMNIA Last administered on 04/14/18at 22:08; Start 04/14/18 at 20:45 Lisinopril (Prinivil) 20 mg DAILY PO Last administered on 04/16/18at 09:18; Start 04/15/18 at 09:00 Hydrochlorothiazide (Microzide) 12.5 mg DAILY PO Last administered on at 08:05; Start 04/15/18 at 09:00 Ondansetron HCl (Zofran) 4 mg PRN Q6HRS PRN IV NAUSEA/VOMITING; Start 04/14/18 at 21:30 Zolpidem Tartrate (Ambien) 5 mg PRN QHS PRN PO INSOMNIA, MAY REPEAT IN 1HR; Start 04/14/18 at 21:30 Oxycodone HCl (Roxicodone) 5 mg PRN Q3HRS PRN PO BREAKTHROUGH PAIN Last administered on 04/15/18at 20:27; Start 04/14/18 at 21:30 Senna/Docusate Sodium (Senna Plus) 1 tab BID PO Last administered on 04/15/18at 08:17; Start 04/15/18 at 09:00 Magnesium Hydroxide (Milk Of Magnesia) 2,400 mg PRN Q12HR PRN PO CONSTIPATION; Start 04/14/18 at 21:30 Bisacodyl (Dulcolax Supp) 10 mg PRN DAILY PRN [place] CONSTIPATION; Start 04/14/18 at 21:30 Methocarbamol (Robaxin) 500 mg PRN Q6HRS PRN PO MUSCLE PAIN; Start 04/15/18 at 09:00 Alprazolam (Xanax) 2 mg QID PO Last administered on 04/15/18at 20:27; Start at 09:00 Ceftriaxone Sodium (Rocephin) 1 gm Q24H IVP Last administered on 04/16/18 09: 19; Start 04/15/18 at 09:00 Albuterol/ Ipratropium (Duoneb) 3 ml BID NEB Last administered on 04/16/18at 07: 20; Start 04/15/18 at 09:00 Albuterol Sulfate (Ventolin Neb Soln) 2.5 mg PRN QID PRN NEB DYSPNEA; Start at 08:30 Potassium Chloride (Klor-Con) 40 meq 1X ONCE PO Last administered on at 08:19; Start 04/15/18 at 08:15; Stop 04/15/18 at 08:18; Status DC Diphenhydramine HCl (Benadryl) 25 mg PRN Q6HRS PRN PO ITCHING; Start 04/15/18 at 14:30 Diphenhydramine HCl (Benadryl) 25 mg PRN Q6HRS PRN PO ITCHING; Start 04/15/18 at 15:00 Aspirin (Ecotrin) 325 mg DAILY PO Last administered on 04/16/18at 09:19; Start 04/16/18 at 09:00; Stop 05/14/18 at 08:59 Vitamin D (Vitamin D3) 5,000 unit DAILY PO Last administered on 04/16/18at 09:15 ; Start 04/16/18 at 09:00 Active Scripts Active Reported Seroquel (Quetiapine Fumarate) 200 Mg Tablet 1 Tab PO QHS PRN Adult Low Dose Aspirin Ec (Aspirin) 81 Mg Tablet.dr 81 Mg PO DAILY Xerese 5%-1% Cream (Acyclovir/Hydrocortisone) 5 Gm Cream..g. 5 Gm TP PRN 3- 4XDAILY PRN Naproxen 500 Mg Tablet 1 Tab PO BID Robaxin (Methocarbamol) 500 Mg Tablet 1 Tab PO PRN Q6HRS PRN Protonix (Pantoprazole Sodium) 20 Mg Tablet.dr 2 Tab PO DAILY Lisinopril-Hctz 20-12.5 Mg Tab (Lisinopril/Hydrochlorothiazide) 1 Each Tablet 1 Tab PO DAILY Alprazolam 2 Mg Tablet 1 Tab PO QID Vitals/I & O Vital Sign - Last 24 Hours 04/15/18 04/15/18 04/15/18 04/15/18 11:00 11:15 13:31 15:00 Temp 97.9 98.5 97.9 98.5 Pulse 57 51 Resp 18 18 B/P (MAP) 130/57 (81) 121/38 (65) Pulse Ox 93 96 96 96 O2 Delivery Nasal Cannula Nasal Cannula Room Air Nasal Cannula O2 Flow Rate 2.0 2.0 2.0 04/15/18 04/15/18 04/15/18 04/15/18 19:00 19:18 20:10 20:27 Temp 97.6 97.6 Pulse 54 Resp 16 B/P (MAP) 122/46 (71) Pulse Ox 95 98 98 O2 Delivery Nasal Cannula Nasal Cannula Nasal Cannula Room Air O2 Flow Rate 2.0 2.0 2.0 2.0 04/15/18 04/16/18 04/16/18 04/16/18 21:27 03:00 07:00 07:21 Temp 97.9 97.8 97.9 97.8 Pulse 54 50 Resp 18 18 B/P (MAP) 115/67 (83) 132/67 (88) Pulse Ox 98 95 90 90 O2 Delivery Nasal Cannula Nasal Cannula Room Air Room Air O2 Flow Rate 2.0 2.0 04/16/18 04/16/18 07:50 09:18 Pulse 50 B/P (MAP) 132/67 O2 Delivery Room Air Intake and Output 04/15/18 04/15/18 04/16/18 15:01 23:01 07:01 Output Total 1275 ml 800 ml Balance -1275 ml -800 ml EMILEE LEE MD Apr 16, 2018 10:50
[2018-04-16 11:00] VITALS: BP 106/63
[2018-04-16] MEDS: oxyCODONE IR 5 MG TABLET PO PRN ×2 (12:22→20:40)
[2018-04-16] MEDS: IV RINGERS,LACTATED 1000ML 1,000 ML IV SCH (12:30)
[2018-04-16 15:00] VITALS: BP 135/76
--- NOTE | 2018-04-16 15:20 | NUR ---
SW following for discharge planning. SW met with pt and pt's . Pt declined home health as she doesn't feel as though she needs this. Pt has a walker at home already. Anticipate pt will dc home with tomorrow (04/17/18). No further SW needs. RN notified.
[2018-04-16 19:15] VITALS: BP 167/58
[2018-04-16] MEDS: QUEtiapine 100 MG TABLET. PO PRN (20:37)
[2018-04-16] MEDS: LACTOBACILLUS RHAMNOSUS GG 1 CAPSULE. PO SCH (20:37)
[2018-04-16 23:09] VITALS: BP 127/68
[2018-04-17 02:56] VITALS: BP 126/64
[2018-04-17] MEDS: oxyCODONE IR 5 MG TABLET PO PRN (04:43)
[2018-04-17] MEDS: PANTOPRAZOLE 40 MG TABLET.DR. PO SCH (06:38)
[2018-04-17 07:00] VITALS: BP 116/62
[2018-04-17] MEDS: IPRATRPIUM/ALBUTEROL 0.5/2.5MG 3 ML NEBU. NEB SCH (07:08)
--- NOTE | 2018-04-17 07:46 | PDOC ---
ORTHO PROGRESS NOTES Subjective Patient states doing well this morning and walked with walker yesterday with minimal difficulty. Procedure non surgical left hip fracture Vitals Vital Signs Date Time Temp Pulse Resp B/P (MAP) Pulse Ox O2 Delivery O2 Flow Rate FiO2 04/17/18 07:08 Room Air 04/17/18 05:43 92 2.0 04/17/18 02:56 98.2 54 18 126/64 (84) 98.[address]-R[address] CT neg for fracture Assessment and Plan Patient with fall and left hip pain patient up with walker with minimal difficulty OK to dc per ortho standpoint with followup at [facility] in 2-3 weeks ROBERTO CARLOS WESTON APRN Apr 17, 2018 07:46
[2018-04-17 08:03] LABS: BASO % 1 % (0-3); EOS # 0.3 x10^3/uL (0.0-0.7); EOS % 5 % (0-3); HEMATOCRIT 35.8 % (36.0-47.0); HEMOGLOBIN 12.2 g/dL (12.0-15.5); LYMPH % 16 % (24-48); MEAN CORPUSCULAR HEMOGLOBIN 30 pg (25-35); MEAN CORPUSCULAR HGB CONC 34 g/dL (31-37); MEAN CORPUSCULAR VOLUME 87 fL (79-100); MONO # 0.4 x10^3/uL (0.0-1.1); MONO % 7 % (0-9); NEUT # 4.5 x10^3uL (1.8-7.7); NEUT % 71 % (31-73); PLATELET COUNT 181 x10^3/uL (140-400); RED BLOOD COUNT 4.12 x10^6/uL (3.50-5.40); RED CELL DISTRIBUTION WIDTH 14.1 % (11.5-14.5); WHITE BLOOD COUNT 6.3 x10^3/uL (4.0-11.0)
[2018-04-17 08:19] LABS: CREATININE 0.8 mg/dL (0.6-1.0); GFR 72.4; POTASSIUM 3.2 mmol/L (3.5-5.1)
[2018-04-17] MEDS: IV RINGERS,LACTATED 1000ML 1,000 ML IV SCH (08:29)
[2018-04-17] MEDS ORDERED: ALPRAZolam 1 MG TABLET PO PRN (09:00)
[2018-04-17] MEDS: hydroCHLOROthiazide 12.5 MG CAPSULE PO SCH (09:14)
[2018-04-17] MEDS: ASPIRIN ENTERIC COATED 325 MG TABLET.DR. PO SCH (09:14)
[2018-04-17] MEDS: LACTOBACILLUS RHAMNOSUS GG 1 CAPSULE. PO SCH (09:14)
[2018-04-17] MEDS: SENNOSIDES/DOCUSATE 8.6/50MG TABLET. PO SCH (09:14)
[2018-04-17] MEDS: LISINOPRIL 20 MG TABLET PO SCH (09:14)
[2018-04-17] MEDS: cefTRIAXone IV Push 1 GM VIAL. IVP SCH (09:15)
[2018-04-17] MEDS: CHOLECALCIFEROL (VITAMIN D3) 1,000 UNIT TABLET PO SCH (09:15)
--- NOTE | 2018-04-17 10:28 | PDOC ---
PROGRESS NOTES History of Present Illness History of Present Illness Assessment/Plan Assessment/Plan fall at home acute left hip pain, concern for femur fracture from prior imaging, NONDISPLACED , NONSURGICAL TREATMENT , Ortho consult, comminuted left intertrochanteric fracture is seen with trochanteric bursal distention. weakness and debility, has been using a walker at home, has not informed Dr. Humphrey of this. prior weight loss, her primary care has worked up last year, no source found HYPOKALEMIA, REPLACED hypoxia, PRN nebs, chronic tobacco use disorder, poss atelectasis, some confusion due to expected medicine side effect RESOLVED OK to dc per ortho standpoint with followup at [facility] in 2-3 weeks Vitals Vitals Vital Signs Date Time Temp Pulse Resp B/P (MAP) Pulse Ox O2 Delivery O2 Flow Rate FiO2 04/17/18 09:14 59 116/62 04/17/18 07:08 Room Air 04/17/18 07:00 98.1 18 90 98.1 04/17/18 05:43 2.0 Physical Exam Physical Exam HEENT: EOMI, Mucous membr. moist/pink Lungs: Clear to auscultation Heart: no murmurs Abdomen: Normal bowel sounds, Soft Rectal Exam: not examined Extremities: No cyanosis, No edema, Normal pulses Skin: No rashes, No significant lesion Neuro: Normal tone, Sensation intact, Cranial nerves 3-12 NL Psych/Mental Status: Mood NL General: Alert, Oriented X3, Cooperative, No acute distress, mild distress Heart: Regular rate, Normal S1, Normal S2, No murmurs Lungs: Clear Abdomen: Normal bowel sounds, Soft, No tenderness Extremities: No cyanosis, No edema, Other (the left hip is tender to palpation laterally. There is no ecchymosis. Gentle range of motion of the hip caused slight pain laterally. There is no groin pain. The limb lengths are equal, and there is no shortening or rotation. There is no gross deformity. Skin intact over the fracture.) Skin: No breakdown, No significant lesion, Other (there is some purple discoloration of the left hand consistent with blood thinners or fragile skin) Labs LABS Laboratory Tests Test 04/17/18 06:30 White Blood Count 6.3 x10^3/uL (4.0-11.0) Red Blood Count 4.12 x10^6/uL (3.50-5.40) Hemoglobin 12.2 g/dL (12.0-15.5) Hematocrit 35.8 % (36.0-47.0) Mean Corpuscular Volume 87 fL (79-100) Mean Corpuscular Hemoglobin 30 pg (25-35) Mean Corpuscular Hemoglobin Concent 34 g/dL (31-37) Red Cell Distribution Width 14.1 % (11.5-14.5) Platelet Count 181 x10^3/uL (140-400) Neutrophils (%) (Auto) 71 % (31-73) Lymphocytes (%) (Auto) 16 % (24-48) Monocytes (%) (Auto) 7 % (0-9) Eosinophils (%) (Auto) 5 % (0-3) Basophils (%) (Auto) 1 % (0-3) Neutrophils # (Auto) 4.5 x10^3uL (1.8-7.7) Lymphocytes # (Auto) 1.0 x10^3/uL (1.0-4.8) Monocytes # (Auto) 0.4 x10^3/uL (0.0-1.1) Eosinophils # (Auto) 0.3 x10^3/uL (0.0-0.7) Basophils # (Auto) 0.0 x10^3/uL (0.0-0.2) Sodium Level 141 mmol/L (136-145) Potassium Level 3.2 mmol/L (3.5-5.1) Chloride Level 102 mmol/L (98-107) Carbon Dioxide Level 31 mmol/L (21-32) Anion Gap 8 (6-14) Blood Urea Nitrogen 8 mg/dL (7-20) Creatinine 0.8 mg/dL (0.6-1.0) Estimated GFR (Cockcroft-Gault) 72.4 Glucose Level 84 mg/dL (70-99) Calcium Level 9.0 mg/dL (8.5-10.1) Comment Review of Relevant I have reviewed the following items apoorva (where applicable) has been applied. Labs Laboratory Tests Test 04/17/18 06:30 White Blood Count 6.3 x10^3/uL (4.0-11.0) Red Blood Count 4.12 x10^6/uL (3.50-5.40) Hemoglobin 12.2 g/dL (12.0-15.5) Hematocrit 35.8 % (36.0-47.0) Mean Corpuscular Volume 87 fL (79-100) Mean Corpuscular Hemoglobin 30 pg (25-35) Mean Corpuscular Hemoglobin Concent 34 g/dL (31-37) Red Cell Distribution Width 14.1 % (11.5-14.5) Platelet Count 181 x10^3/uL (140-400) Neutrophils (%) (Auto) 71 % (31-73) Lymphocytes (%) (Auto) 16 % (24-48) Monocytes (%) (Auto) 7 % (0-9) Eosinophils (%) (Auto) 5 % (0-3) Basophils (%) (Auto) 1 % (0-3) Neutrophils # (Auto) 4.5 x10^3uL (1.8-7.7) Lymphocytes # (Auto) 1.0 x10^3/uL (1.0-4.8) Monocytes # (Auto) 0.4 x10^3/uL (0.0-1.1) Eosinophils # (Auto) 0.3 x10^3/uL (0.0-0.7) Basophils # (Auto) 0.0 x10^3/uL (0.0-0.2) Sodium Level 141 mmol/L (136-145) Potassium Level 3.2 mmol/L (3.5-5.1) Chloride Level 102 mmol/L (98-107) Carbon Dioxide Level 31 mmol/L (21-32) Anion Gap 8 (6-14) Blood Urea Nitrogen 8 mg/dL (7-20) Creatinine 0.8 mg/dL (0.6-1.0) Estimated GFR (Cockcroft-Gault) 72.4 Glucose Level 84 mg/dL (70-99) Calcium Level 9.0 mg/dL (8.5-10.1) Laboratory Tests Test 04/17/18 06:30 White Blood Count 6.3 x10^3/uL (4.0-11.0) Red Blood Count 4.12 x10^6/uL (3.50-5.40) Hemoglobin 12.2 g/dL (12.0-15.5) Hematocrit 35.8 % (36.0-47.0) Mean Corpuscular Volume 87 fL (79-100) Mean Corpuscular Hemoglobin 30 pg (25-35) Mean Corpuscular Hemoglobin Concent 34 g/dL (31-37) Red Cell Distribution Width 14.1 % (11.5-14.5) Platelet Count 181 x10^3/uL (140-400) Neutrophils (%) (Auto) 71 % (31-73) Lymphocytes (%) (Auto) 16 % (24-48) Monocytes (%) (Auto) 7 % (0-9) Eosinophils (%) (Auto) 5 % (0-3) Basophils (%) (Auto) 1 % (0-3) Neutrophils # (Auto) 4.5 x10^3uL (1.8-7.7) Lymphocytes # (Auto) 1.0 x10^3/uL (1.0-4.8) Monocytes # (Auto) 0.4 x10^3/uL (0.0-1.1) Eosinophils # (Auto) 0.3 x10^3/uL (0.0-0.7) Basophils # (Auto) 0.0 x10^3/uL (0.0-0.2) Sodium Level 141 mmol/L (136-145) Potassium Level 3.2 mmol/L (3.5-5.1) Chloride Level 102 mmol/L (98-107) Carbon Dioxide Level 31 mmol/L (21-32) Anion Gap 8 (6-14) Blood Urea Nitrogen 8 mg/dL (7-20) Creatinine 0.8 mg/dL (0.6-1.0) Estimated GFR (Cockcroft-Gault) 72.4 Glucose Level 84 mg/dL (70-99) Calcium Level 9.0 mg/dL (8.5-10.1) Microbiology 04/14/18 Urine Culture - Preliminary, Resulted 04/14/18 Urine Culture Result 1 (NATALIE) - Preliminary, Resulted Medications Current Medications Morphine Sulfate (Morphine Sulfate) 2 mg PRN Q4HRS PRN IV PAIN; Start 04/14/18 at 20:00; Stop 04/14/18 at 20:24; Status DC Acetaminophen/ Hydrocodone Bitart (Lortab 5/325) 1 tab PRN Q6HRS PRN PO PAIN; Start 04/14/18 at 20:00; Stop 04/14/18 at 20:13; Status DC Acetaminophen (Tylenol) 650 mg PRN Q6HRS PRN PO MILD PAIN; Start 04/14/18 at 20 :30 Tramadol HCl (Ultram) 50 mg PRN Q6HRS PRN PO SEVERE PAIN; Start 04/14/18 at 20: 30 Fentanyl Citrate (Fentanyl 2ml Vial) 25 mcg PRN Q4HRS PRN IV PAIN Last administered on 04/15/18at 01:13; Start 04/14/18 at 20:30 Ringer's Solution 1,000 ml @ 50 mls/hr Q20H IV Last administered on 04/15/18at 16:30; Start 04/14/18 at 20:30 Heparin Sodium (Porcine) (Heparin Sodium) 5,000 unit 1X ONCE SQ Last administered on 04/14/18at 22:13; Start 04/14/18 at 21:30; Stop 04/14/18 at 21:31 ; Status DC Alprazolam (Xanax) 1 mg PRN QID PRN PO ANXIETY / AGITATION; Start 04/14/18 at 20:45; Stop 04/15/18 at 08:09; Status DC Methocarbamol (Robaxin) 500 mg PRN TID PRN PO MUSCLE SPASMS; Start 04/14/18 at 20:45; Stop 04/15/18 at 08:08; Status DC Naproxen (Naprosyn) 500 mg PRN BID PRN PO MODERATE PAIN Last administered on at 08:07; Start 04/14/18 at 20:45 Aspirin (Ecotrin) 81 mg DAILYWBKFT PO Last administered on 04/15/18at 08:06; Start 04/15/18 at 08:00; Stop 04/15/18 at 19:26; Status DC Non-Formulary Medication (Acyclovir/ Hydrocortisone (Xerese 5%-1% Cream)) 5 gm PRN 3-4XDAILY PRN TP RASH; Start 04/14/18 at 20:45; Status UNV Non-Formulary Medication (Lisinopril/ Hydrochlorothiazide (Lisinopril-Hctz 20- 12.5 Mg Tab)) 1 tab DAILY PO ; Start 04/15/18 at 09:00; Status UNV Pantoprazole Sodium (Protonix) 40 mg DAILYAC PO Last administered on 04/17/18 06:38; Start 04/15/18 at 07:30 Quetiapine Fumarate (SEROquel) 200 mg PRN QHS PRN PO INSOMNIA, 1ST CHOICE Last administered on 04/16/18at 20:37; Start 04/14/18 at 20:45 Lisinopril (Prinivil) 20 mg DAILY PO Last administered on 04/17/18 09:14; Start 04/15/18 at 09:00 Hydrochlorothiazide (Microzide) 12.5 mg DAILY PO Last administered on 09:14; Start 04/15/18 at 09:00 Ondansetron HCl (Zofran) 4 mg PRN Q6HRS PRN IV NAUSEA/VOMITING; Start 04/14/18 at 21:30 Zolpidem Tartrate (Ambien) 5 mg PRN QHS PRN PO INSOMNIA, 2ND CHOICE, MRX1; Start 04/14/18 at 21:30 Oxycodone HCl (Roxicodone) 5 mg PRN Q3HRS PRN PO BREAKTHROUGH PAIN Last administered on 04/17/18at 04:43; Start 04/14/18 at 21:30 Senna/Docusate Sodium (Senna Plus) 1 tab BID PO Last administered on 04/17/18 09:14; Start 04/15/18 at 09:00 Magnesium Hydroxide (Milk Of Magnesia) 2,400 mg PRN Q12HR PRN PO CONSTIPATION; Start 04/14/18 at 21:30 Bisacodyl (Dulcolax Supp) 10 mg PRN DAILY PRN [place] CONSTIPATION; Start 04/14/18 at 21:30 Methocarbamol (Robaxin) 500 mg PRN Q6HRS PRN PO MUSCLE PAIN; Start 04/15/18 at 09:00 Alprazolam (Xanax) 2 mg QID PO Last administered on 04/16/18at 16:27; Start at 09:00; Stop 04/16/18 at 19:23; Status DC Ceftriaxone Sodium (Rocephin) 1 gm Q24H IVP Last administered on 04/17/18 09: 15; Start 04/15/18 at 09:00 Albuterol/ Ipratropium (Duoneb) 3 ml BID NEB Last administered on 04/17/18at 07: 08; Start 04/15/18 at 09:00 Albuterol Sulfate (Ventolin Neb Soln) 2.5 mg PRN QID PRN NEB DYSPNEA; Start at 08:30 Potassium Chloride (Klor-Con) 40 meq 1X ONCE PO Last administered on at 08:19; Start 04/15/18 at 08:15; Stop 04/15/18 at 08:18; Status DC Diphenhydramine HCl (Benadryl) 25 mg PRN Q6HRS PRN PO ITCHING; Start 04/15/18 at 14:30; Stop 04/16/18 at 11:23; Status DC Diphenhydramine HCl (Benadryl) 25 mg PRN Q6HRS PRN PO ITCHING; Start 04/15/18 at 15:00 Aspirin (Ecotrin) 325 mg DAILY PO Last administered on 04/17/18at 09:14; Start 04/16/18 at 09:00; Stop 05/14/18 at 08:59 Vitamin D (Vitamin D3) 5,000 unit DAILY PO Last administered on 04/17/18at 09:15 ; Start 04/16/18 at 09:00 Lactobacillus Rhamnosus (Culturelle) 1 cap BID PO Last administered on at 09:14; Start 04/16/18 at 21:00 Alprazolam (Xanax) 2 mg PRN QID PRN PO ANXIETY / AGITATION Last administered on 04/17/18at 09:31; Start 04/17/18 at 09:00 Active Scripts Active Reported Seroquel (Quetiapine Fumarate) 200 Mg Tablet 1 Tab PO QHS PRN Adult Low Dose Aspirin Ec (Aspirin) 81 Mg Tablet. 81 Mg PO DAILY Xerese 5%-1% Cream (Acyclovir/Hydrocortisone) 5 Gm Cream..g. 5 Gm TP PRN 3- 4XDAILY PRN Naproxen 500 Mg Tablet 1 Tab PO BID Robaxin (Methocarbamol) 500 Mg Tablet 1 Tab PO PRN Q6HRS PRN Protonix (Pantoprazole Sodium) 20 Mg Tablet. 2 Tab PO DAILY Lisinopril-Hctz 20-12.5 Mg Tab (Lisinopril/Hydrochlorothiazide) 1 Each Tablet 1 Tab PO DAILY Alprazolam 2 Mg Tablet 1 Tab PO QID Vitals/I & O Vital Sign - Last 24 Hours 04/16/18 04/16/18 04/16/18 04/16/18 11:00 12:22 13:22 15:00 Temp 98.2 98.3 98.2 98.3 Pulse 64 60 Resp 18 16 16 18 B/P (MAP) 106/63 (77) 135/76 (95) Pulse Ox 90 90 O2 Delivery Room Air Room Air Room Air 04/16/18 04/16/18 04/16/18 04/16/18 19:15 19:50 20:25 20:40 Temp 97.7 97.7 Pulse 54 Resp 20 B/P (MAP) 167/58 (94) Pulse Ox 92 91 91 O2 Delivery Room Air Room Air Room Air Room Air O2 Flow Rate 2.0 04/16/18 04/17/18 04/17/18 04/17/18 23:09 02:56 04:43 05:43 Temp 98.0 98.2 98.0 98.2 Pulse 63 54 Resp 18 18 B/P (MAP) 127/68 (87) 126/64 (84) Pulse Ox 92 92 92 92 O2 Delivery Room Air Room Air Room Air Room Air O2 Flow Rate 2.0 2.0 04/17/18 04/17/18 04/17/18 07:00 07:08 09:14 Temp 98.1 98.1 Pulse 59 59 Resp 18 B/P (MAP) 116/62 (80) 116/62 Pulse Ox 90 O2 Delivery Room Air Room Air Intake and Output 04/16/18 04/16/18 04/17/18 15:01 23:01 07:01 Intake Total 420 ml 170 ml 360 ml Balance 420 ml 170 ml 360 ml EMILEE LEE MD Apr 17, 2018 10:28
--- NOTE | 2018-04-17 10:55 | NUR ---
SW following. Discussed with RN, pt declined any needs upon discharge. Anticipate pt will discharge home today with . No further SW needs.
[2018-04-17 11:00] VITALS: BP 124/77
[2018-04-17 11:15] LABS: FREE T4 1.04 ng/dL (0.76-1.46); THYROID STIM HORMONE (TSH) 1.731 uIU/mL (0.358-3.74)
[2018-04-17] MEDS ORDERED: POTASSIUM CHLORIDE 20 MEQ TABLET.ER. PO ONE (11:30)
--- NOTE | 2018-04-17 12:00 | PDOC3 ---
Discharge Summary Date of Admission: Apr 15, 2018 Date of Discharge: Apr 17, 2018 Follow-Up: 3-5 days Admitting Diagnosis comment: DISCHARGE DX Assessment/Plan fall at home acute left hip pain, concern for femur fracture from prior imaging, NONDISPLACED , NONSURGICAL TREATMENT , Ortho consulted, comminuted left intertrochanteric fracture is seen with trochanteric bursal distention. weakness and debility, has been using a walker at home, has not informed Dr. Humphrey of this. prior weight loss, her primary care has worked up last year, no source found HYPOKALEMIA, REPLACED TODAY hypoxia, PRN nebs, chronic tobacco use disorder, poss atelectasis, some confusion due to expected medicine side effect RESOLVED OK to dc per ortho standpoint with followup at [facility] in 2-3 weeks Vitals Vitals Vital Signs Date Time Temp Pulse Resp B/P (MAP) Pulse Ox O2 Delivery O2 Flow Rate FiO2 04/17/18 09:14 59 116/62 04/17/18 07:08 Room Air 04/17/18 07:00 98.1 18 90 98.1 04/17/18 05:43 2.0 Physical Exam Physical Exam HEENT: EOMI, Mucous membr. moist/pink Lungs: Clear to auscultation Heart: no murmurs Abdomen: Normal bowel sounds, Soft Rectal Exam: not examined Extremities: No cyanosis, No edema, Normal pulses Skin: No rashes, No significant lesion Neuro: Normal tone, Sensation intact, Cranial nerves 3-12 NL Psych/Mental Status: Mood NL General: Alert, Oriented X3, Cooperative, No acute distress, mild distress Heart: Regular rate, Normal S1, Normal S2, No murmurs Lungs: Clear Abdomen: Normal bowel sounds, Soft, No tenderness Extremities: No cyanosis, No edema, Other (the left hip is tender to palpation laterally. There is no ecchymosis. Gentle range of motion of the hip caused slight pain laterally. There is no groin pain. The limb lengths are equal, and there is no shortening or rotation. There is no gross deformity. Skin intact over the fracture.) Skin: No breakdown, No significant lesion, Other (there is some purple discoloration of the left hand consistent with blood thinners or fragile skin) Brief Hospital Course Ms. Buchanan is a 62 old [sex] who presented with [left hip fx, nondisplaced ] CONDITION AT DISCHARGE: Improved Discharge Medications Current Medications Morphine Sulfate (Morphine Sulfate) 2 mg PRN Q4HRS PRN IV PAIN; Start 04/14/18 at 20:00; Stop 04/14/18 at 20:24; Status DC Acetaminophen/ Hydrocodone Bitart (Lortab 5/325) 1 tab PRN Q6HRS PRN PO PAIN; Start 04/14/18 at 20:00; Stop 04/14/18 at 20:13; Status DC Acetaminophen (Tylenol) 650 mg PRN Q6HRS PRN PO MILD PAIN; Start 04/14/18 at 20 :30 Tramadol HCl (Ultram) 50 mg PRN Q6HRS PRN PO SEVERE PAIN; Start 04/14/18 at 20: 30 Fentanyl Citrate (Fentanyl 2ml Vial) 25 mcg PRN Q4HRS PRN IV PAIN Last administered on 04/15/18at 01:13; Start 04/14/18 at 20:30 Ringer's Solution 1,000 ml @ 50 mls/hr Q20H IV Last administered on 04/15/18at 16:30; Start 04/14/18 at 20:30 Heparin Sodium (Porcine) (Heparin Sodium) 5,000 unit 1X ONCE SQ Last administered on 04/14/18at 22:13; Start 04/14/18 at 21:30; Stop 04/14/18 at 21:31 ; Status DC Alprazolam (Xanax) 1 mg PRN QID PRN PO ANXIETY / AGITATION; Start 04/14/18 at 20:45; Stop 04/15/18 at 08:09; Status DC Methocarbamol (Robaxin) 500 mg PRN TID PRN PO MUSCLE SPASMS; Start 04/14/18 at 20:45; Stop 04/15/18 at 08:08; Status DC Naproxen (Naprosyn) 500 mg PRN BID PRN PO MODERATE PAIN Last administered on at 08:07; Start 04/14/18 at 20:45 Aspirin (Ecotrin) 81 mg DAILYWBKFT PO Last administered on 04/15/18at 08:06; Start 04/15/18 at 08:00; Stop 04/15/18 at 19:26; Status DC Non-Formulary Medication (Acyclovir/ Hydrocortisone (Xerese 5%-1% Cream)) 5 gm PRN 3-4XDAILY PRN TP RASH; Start 04/14/18 at 20:45; Status UNV Non-Formulary Medication (Lisinopril/ Hydrochlorothiazide (Lisinopril-Hctz 20- 12.5 Mg Tab)) 1 tab DAILY PO ; Start 04/15/18 at 09:00; Status UNV Pantoprazole Sodium (Protonix) 40 mg DAILYAC PO Last administered on 04/17/18at 06:38; Start 04/15/18 at 07:30 Quetiapine Fumarate (SEROquel) 200 mg PRN QHS PRN PO INSOMNIA, 1ST CHOICE Last administered on 04/16/18at 20:37; Start 04/14/18 at 20:45 Lisinopril (Prinivil) 20 mg DAILY PO Last administered on 04/17/18at 09:14; Start 04/15/18 at 09:00 Hydrochlorothiazide (Microzide) 12.5 mg DAILY PO Last administered on at 09:14; Start 04/15/18 at 09:00 Ondansetron HCl (Zofran) 4 mg PRN Q6HRS PRN IV NAUSEA/VOMITING; Start 04/14/18 at 21:30 Zolpidem Tartrate (Ambien) 5 mg PRN QHS PRN PO INSOMNIA, 2ND CHOICE, MRX1; Start 04/14/18 at 21:30 Oxycodone HCl (Roxicodone) 5 mg PRN Q3HRS PRN PO BREAKTHROUGH PAIN Last administered on 04/17/18at 04:43; Start 04/14/18 at 21:30 Senna/Docusate Sodium (Senna Plus) 1 tab BID PO Last administered on 04/17/18at 09:14; Start 04/15/18 at 09:00 Magnesium Hydroxide (Milk Of Magnesia) 2,400 mg PRN Q12HR PRN PO CONSTIPATION; Start 04/14/18 at 21:30 Bisacodyl (Dulcolax Supp) [address] CONSTIPATION; Start 04/14/18 at 21:30 Methocarbamol (Robaxin) 500 mg PRN Q6HRS PRN PO MUSCLE PAIN; Start 04/15/18 at 09:00 Alprazolam (Xanax) 2 mg QID PO Last administered on 04/16/18at 16:27; Start at 09:00; Stop 04/16/18 at 19:23; Status DC Ceftriaxone Sodium (Rocephin) 1 gm Q24H IVP Last administered on 04/17/18at 09: 15; Start 04/15/18 at 09:00 Albuterol/ Ipratropium (Duoneb) 3 ml BID NEB Last administered on 04/17/18at 07: 08; Start 04/15/18 at 09:00 Albuterol Sulfate (Ventolin Neb Soln) 2.5 mg PRN QID PRN NEB DYSPNEA; Start at 08:30 Potassium Chloride (Klor-Con) 40 meq 1X ONCE PO Last administered on at 08:19; Start 04/15/18 at 08:15; Stop 04/15/18 at 08:18; Status DC Diphenhydramine HCl (Benadryl) 25 mg PRN Q6HRS PRN PO ITCHING; Start 04/15/18 at 14:30; Stop 04/16/18 at 11:23; Status DC Diphenhydramine HCl (Benadryl) 25 mg PRN Q6HRS PRN PO ITCHING; Start 04/15/18 at 15:00 Aspirin (Ecotrin) 325 mg DAILY PO Last administered on 04/17/18at 09:14; Start 04/16/18 at 09:00; Stop 05/14/18 at 08:59 Vitamin D (Vitamin D3) 5,000 unit DAILY PO Last administered on 04/17/18at 09:15 ; Start 04/16/18 at 09:00 Lactobacillus Rhamnosus (Culturelle) 1 cap BID PO Last administered on at 09:14; Start 04/16/18 at 21:00 Alprazolam (Xanax) 2 mg PRN QID PRN PO ANXIETY / AGITATION Last administered on 04/17/18at 09:31; Start 04/17/18 at 09:00 Calcium/Vitamin D (Oscal D 500mg/ 200uts) 2 tab BIDWMEALS PO ; Start 04/17/18 at 17:00 Potassium Chloride (Klor-Con) 40 meq 1X ONCE PO ; Start 04/17/18 at 11:30; Stop 04/17/18 at 11:31; Status DC Active Scripts Active Reported Seroquel (Quetiapine Fumarate) 200 Mg Tablet 1 Tab PO QHS PRN Adult Low Dose Aspirin Ec (Aspirin) 81 Mg Tablet.dr 81 Mg PO DAILY Xerese 5%-1% Cream (Acyclovir/Hydrocortisone) 5 Gm Cream..g. 5 Gm TP PRN 3- 4XDAILY PRN Naproxen 500 Mg Tablet 1 Tab PO BID Robaxin (Methocarbamol) 500 Mg Tablet 1 Tab PO PRN Q6HRS PRN Protonix (Pantoprazole Sodium) 20 Mg Tablet.dr 2 Tab PO DAILY Lisinopril-Hctz 20-12.5 Mg Tab (Lisinopril/Hydrochlorothiazide) 1 Each Tablet 1 Tab PO DAILY Alprazolam 2 Mg Tablet 1 Tab PO QID Vital Signs Vital Signs Date Time Temp Pulse Resp B/P (MAP) Pulse Ox O2 Delivery O2 Flow Rate FiO2 04/17/18 11:00 98.2 69 18 124/77 (93) 90 Room Air 98.2 04/17/18 05:43 2.0 Labs Laboratory Tests Test 04/17/18 06:30 White Blood Count 6.3 x10^3/uL (4.0-11.0) Red Blood Count 4.12 x10^6/uL (3.50-5.40) Hemoglobin 12.2 g/dL (12.0-15.5) Hematocrit 35.8 % (36.0-47.0) Mean Corpuscular Volume 87 fL (79-100) Mean Corpuscular Hemoglobin 30 pg (25-35) Mean Corpuscular Hemoglobin Concent 34 g/dL (31-37) Red Cell Distribution Width 14.1 % (11.5-14.5) Platelet Count 181 x10^3/uL (140-400) Neutrophils (%) (Auto) 71 % (31-73) Lymphocytes (%) (Auto) 16 % (24-48) Monocytes (%) (Auto) 7 % (0-9) Eosinophils (%) (Auto) 5 % (0-3) Basophils (%) (Auto) 1 % (0-3) Neutrophils # (Auto) 4.5 x10^3uL (1.8-7.7) Lymphocytes # (Auto) 1.0 x10^3/uL (1.0-4.8) Monocytes # (Auto) 0.4 x10^3/uL (0.0-1.1) Eosinophils # (Auto) 0.3 x10^3/uL (0.0-0.7) Basophils # (Auto) 0.0 x10^3/uL (0.0-0.2) Sodium Level 141 mmol/L (136-145) Potassium Level 3.2 mmol/L (3.5-5.1) Chloride Level 102 mmol/L (98-107) Carbon Dioxide Level 31 mmol/L (21-32) Anion Gap 8 (6-14) Blood Urea Nitrogen 8 mg/dL (7-20) Creatinine 0.8 mg/dL (0.6-1.0) Estimated GFR (Cockcroft-Gault) 72.4 Glucose Level 84 mg/dL (70-99) Calcium Level 9.0 mg/dL (8.5-10.1) Thyroid Stimulating Hormone (TSH) 1.731 uIU/mL (0.358-3.74) Free Thyroxine 1.04 ng/dL (0.76-1.46) Laboratory Tests Test 04/17/18 06:30 White Blood Count 6.3 x10^3/uL (4.0-11.0) Red Blood Count 4.12 x10^6/uL (3.50-5.40) Hemoglobin 12.2 g/dL (12.0-15.5) Hematocrit 35.8 % (36.0-47.0) Mean Corpuscular Volume 87 fL (79-100) Mean Corpuscular Hemoglobin 30 pg (25-35) Mean Corpuscular Hemoglobin Concent 34 g/dL (31-37) Red Cell Distribution Width 14.1 % (11.5-14.5) Platelet Count 181 x10^3/uL (140-400) Neutrophils (%) (Auto) 71 % (31-73) Lymphocytes (%) (Auto) 16 % (24-48) Monocytes (%) (Auto) 7 % (0-9) Eosinophils (%) (Auto) 5 % (0-3) Basophils (%) (Auto) 1 % (0-3) Neutrophils # (Auto) 4.5 x10^3uL (1.8-7.7) Lymphocytes # (Auto) 1.0 x10^3/uL (1.0-4.8) Monocytes # (Auto) 0.4 x10^3/uL (0.0-1.1) Eosinophils # (Auto) 0.3 x10^3/uL (0.0-0.7) Basophils # (Auto) 0.0 x10^3/uL (0.0-0.2) Sodium Level 141 mmol/L (136-145) Potassium Level 3.2 mmol/L (3.5-5.1) Chloride Level 102 mmol/L (98-107) Carbon Dioxide Level 31 mmol/L (21-32) Anion Gap 8 (6-14) Blood Urea Nitrogen 8 mg/dL (7-20) Creatinine 0.8 mg/dL (0.6-1.0) Estimated GFR (Cockcroft-Gault) 72.4 Glucose Level 84 mg/dL (70-99) Calcium Level 9.0 mg/dL (8.5-10.1) Thyroid Stimulating Hormone (TSH) 1.731 uIU/mL (0.358-3.74) Free Thyroxine 1.04 ng/dL (0.76-1.46) Allergies Allergies Coded Allergies Type Severity Reaction Last Updated Verified codeine Allergy Mild Itching 06/19/16 Yes hydrocodone Allergy Mild Itching 04/14/18 Yes Disposition/Orders: D/C to Home Patient Instructions d/c planning 34 min EMILEE LEE MD Apr 17, 2018 12:00
--- NOTE | 2018-04-17 12:01 | DISCH ---
DISCHARGE INSTRUCTIONS Condition on Discharge Condition on Discharge: Stable Activity After Discharge Activity Instructions for Disc: Activity as tolerated Lifting Instructions after Dis: No heavy lifting, No pulling or pushing, Do not lift >10 pounds Driving Instructions after Dis: Do not drive Diet after Discharge Diet after Discharge: Low Sodium 2 gm Checks after Discharge Checks after discharge: Check blood press - daily Contacting the DRMargarita after DC Call your doctor for: If your condition worsens EMILEE LEE MD Apr 17, 2018 12:01
[2018-04-17] MEDS ORDERED: SENN-22 PO (12:05)
[2018-04-17] MEDS ORDERED: OXYC5TAB4 PO (12:05)
[2018-04-17] MEDS ORDERED: CEPH-263 PO (12:05)
[2018-04-17] MEDS ORDERED: CALC1TAB72 PO (12:05)
--- NOTE | 2018-04-17 13:40 | NUR ---
Pt discharged home with no additional services, Pt declined HH services with PT even though it was strongly suggested by PT and nursing staff. By w/c to hospital entrance, accompanied by family member. Discharge instructions and education regarding Dx provided to Pt who verbalized understanding and had no further questions. Pt aware that she needs a f/u appointment with Dr Ballard in 2-3 weeks and she needs to mention that an x-ray is needed prior to appointment. No changes from previous assessment.
[2018-04-17] MEDS ORDERED: CALCIUM CARB/VIT D3 500/200 TABLET. PO SCH (17:00)
== END 2018-04-17 13:40 | disposition home or self-care (01) | DRG 536 ==
LOC: 4 NORTH 17:13
PROVIDERS: ADMIT Internal Medicine; ATTEND Internal Medicine
DX: S72.145A Nondisplaced intertrochanteric fracture of left femur, initial encounter for closed fracture (principal); J98.11 Atelectasis; F17.210 Nicotine dependence, cigarettes, uncomplicated; I10 Essential (primary) hypertension; F32.9 Major depressive disorder, single episode, unspecified; F41.9 Anxiety disorder, unspecified; G56.00 Carpal tunnel syndrome, unspecified upper limb; E87.6 Hypokalemia; W18.39XA Other fall on same level, initial encounter; Z88.5 Allergy status to narcotic agent; Z90.49 Acquired absence of other specified parts of digestive tract; Y93.89 Activity, other specified; Y92.89 Other specified places as the place of occurrence of the external cause; Y99.8 Other external cause status; R09.02 Hypoxemia
CPT/HCPCS: 36415; 73700; 80048; 81001; 82306; 84439; 84443; 85025; 85610; 87086; 87186; 87641; 93005; 94640; 94760; J0696; J1644; J3010; J7120; J7620; 97116; 97535; G0378